=== PATIENT | male | born 1930 | race Caucasian/White ===

== ENCOUNTER 2017-09-25 22:30 | Observation (INO) | payer OTHER ==
[~2017-09-25] VITALS: Ht 175.3 cm; Wt 103.9 kg
[~2017-09-25 22:30] MED LIST: ASPI81 CHEW; ATEN-100 PO; FURO1TAB93 PO; LOVA10TA; VASO10TA8 PO
[2017-09-25 22:36] VITALS: BP 211/103; PULSE 119; RESP 20; TEMP 101.4; O2SAT 96
[2017-09-25 22:45] VITALS: BP 171/87; PULSE 118; RESP 20; TEMP 102.5; O2SAT 98
[2017-09-25] MEDS ORDERED: cefTRIAXone INJ 1,000 MG in SODIUM CHLORIDE 0.9% INJ 100 ML IV ONE (23:00)
[2017-09-25] MEDS ORDERED: AZITHROMYCIN INJ 500 MG in SODIUM CHLOR 0.9% 250 ML INJ 250 ML IV ONE (23:00)
[2017-09-25] MEDS ORDERED: RESP: ALBUTEROL 2.5 MG/IPRATROPIUM 0.5 MG NEB (SCH) NEB ONE (23:00)
[2017-09-25 23:17] LABS: AUTOMATED NEUTROPHIL # 8.6 TH/MM3 (1.8-7.7); BASOPHIL # 0.2 TH/MM3 (0-0.2); BASOPHIL % 1.7 % (0.0-2.0); EOSINOPHIL # 0.1 TH/MM3 (0-0.4); EOSINOPHIL % 0.5 % (0.0-4.0); HEMATOCRIT 43.5 % (39.0-51.0); HEMO FLAGS DIFF FINAL; LYMPHOCYTE # 0.5 TH/MM3 (1.0-4.8); MEAN CELL VOLUME 97.9 FL (80.0-100.0); MEAN CORPUSCULAR HEMOGLOBIN 32.9 PG (27.0-34.0); MEAN CORPUSCULAR HGB CONC 33.6 % (32.0-36.0); MONO % 6.8 % (0.0-8.0); PLATELET COUNT 206 TH/MM3 (150-450); RED BLOOD COUNT 4.44 MIL/MM3 (4.50-5.90); RED CELL DISTRIBUTION WIDTH 13.1 % (11.6-17.2); WHITE BLOOD COUNT 10.1 TH/MM3 (4.0-11.0)
[2017-09-25 23:29] LABS: CHLORIDE 101 MEQ/L (98-107); SODIUM (NA) 133 MEQ/L (136-145)
[2017-09-25 23:33] LABS: ANION GAP 10 MEQ/L (5-15); BICARBONATE 21.8 MEQ/L (21.0-32.0); BLOOD UREA NITROGEN 30 MG/DL (7-18)
[2017-09-25 23:36] LABS: ALT (GPT) 54 U/L (12-78); AST (GOT) 28 U/L (15-37); GLOMERULAR FILTRATION RATE 58 ML/MIN (>89)
[2017-09-25 23:37] LABS: TOTAL BILIRUBIN ADULT 0.5 MG/DL (0.2-1.0)
[2017-09-25 23:39] LABS: ALKALINE PHOSPHATASE 63 U/L (45-117)
--- NOTE | 2017-09-25 23:43 | PD ---
Physical Exam Date Seen by Provider: Sep 25, 2017 Narrative This report is in ERROR Please disregard this report and all prior copies ! This report is in ERROR Please disregard this report and all prior copies ! This report is in ERROR Please disregard this report and all prior copies ! Data Data Last Documented VS Vital Signs Date Time Temp Pulse Resp B/P (MAP) Pulse Ox O2 Delivery O2 Flow Rate FiO2 09/25/17 22:45 102.5 118 20 171/87 (115) 98 Room Air 4.00 Orders Orders Electrocardiogram (09/25/17 22:48) Complete Blood Count With Diff (09/25/17 22:48) Comprehensive Metabolic Panel (09/25/17 22:48) Troponin I (09/25/17 22:48) B-Type Natriuretic Peptide (09/25/17 22:48) Lipase (09/25/17 22:48) Chest, Pa & Lat (09/25/17 22:48) Ceftriaxone Inj (Rocephin Inj) (09/25/17 23:00) Azithromycin Inj (Zithromax Inj) (09/25/17 23:00) Blood Culture (09/25/17 22:50) Albuterol-Ipratropium Neb (Duoneb Neb) (09/25/17 23:00) Lactic Acid (09/25/17 23:05) Labs Laboratory Tests Test 09/25/17 23:05 White Blood Count 10.1 TH/MM3 Red Blood Count 4.44 MIL/MM3 Hemoglobin 14.6 GM/DL Hematocrit 43.5 % Mean Corpuscular Volume 97.9 FL Mean Corpuscular Hemoglobin 32.9 PG Mean Corpuscular Hemoglobin Concent 33.6 % Red Cell Distribution Width 13.1 % Platelet Count 206 TH/MM3 Mean Platelet Volume 7.0 FL Neutrophils (%) (Auto) 86.0 % Lymphocytes (%) (Auto) 5.0 % Monocytes (%) (Auto) 6.8 % Eosinophils (%) (Auto) 0.5 % Basophils (%) (Auto) 1.7 % Neutrophils # (Auto) 8.6 TH/MM3 Lymphocytes # (Auto) 0.5 TH/MM3 Monocytes # (Auto) 0.7 TH/MM3 Eosinophils # (Auto) 0.1 TH/MM3 Basophils # (Auto) 0.2 TH/MM3 CBC Comment DIFF FINAL Differential Comment Blood Urea Nitrogen 30 MG/DL Creatinine 1.20 MG/DL Random Glucose 194 MG/DL Total Protein 6.7 GM/DL Albumin 3.1 GM/DL Calcium Level 7.7 MG/DL Alkaline Phosphatase 63 U/L Aspartate Amino Transf (AST/SGOT) 28 U/L Alanine Aminotransferase (ALT/SGPT) 54 U/L Total Bilirubin 0.5 MG/DL Sodium Level 133 MEQ/L Potassium Level 4.0 MEQ/L Chloride Level 101 MEQ/L Carbon Dioxide Level 21.8 MEQ/L Anion Gap 10 MEQ/L Estimat Glomerular Filtration Rate 58 ML/MIN Lactic Acid Level 1.7 mmol/L Troponin I 0.03 NG/ML Lipase 199 U/L MDM Supervised Visit with ARIAN: Yes (error cancel chart) Moe Ramírez MD Sep 25, 2017 23:43
--- NOTE | 2017-09-25 23:44 | RADRPT ---
EXAM DATE/TIME: 09/25/2017 23:12 [place] COMPARISON: No previous studies available for comparison. INDICATIONS : Shortness of breath and tightness in chest. MEDICAL HISTORY : None. SURGICAL HISTORY : None. ENCOUNTER: Initial ACUITY: 1 day PAIN SCORE: 4/10 LOCATION: Bilateral chest FINDINGS: PA and lateral views of the chest demonstrate the lungs to be symmetrically aerated without evidence of mass, infiltrate or effusion. The cardiomediastinal contours are unremarkable. Marked osteoarthri tis of both shoulders. CONCLUSION: Normal examination except for faint 8mm nodular density left upper lobe. Followup 2 view chest as an outpatient is recommended. Nnamdi Leon MD on September 25, 2017 at 23:42 Board Certified Radiologist. This report was verified electronically.
[2017-09-25 23:46] VITALS: BP 121/59; PULSE 110; RESP 18; O2SAT 97
[2017-09-26] VITALS (10 sets, daily range): BP systolic 121–142; BP diastolic 63–80; PULSE 66–101; RESP 18–20; TEMP 97.4–100.3; O2SAT 93–98
--- NOTE | 2017-09-26 00:30 | PD ---
HPI Chief Complaint: Cold / Flu Symptoms Time Seen by Provider: 22:40 Travel History International Travel<30 days: No Contact w/Intl Traveler<30days: No Traveled to known affect area: No History of Present Illness HPI Patient is an 86-year-old male coming from home saying that he is feeling short of breath. He says not pneumonia but I feel like I can't quite brief. He says it's my edema. However he denies having congestive heart failure. Patient is febrile at 102. The satting to 90 on room air. And tachycardic as well as hypertensive on originally arriving. He did not take anything to feel better he says he just feels like he's got a bad cold. PFSH Past Medical History Autoimmune Disease: No Anxiety: No Depression: No Heart Rhythm Problems: No Cancer: No Cardiac Catheterization: No Cardiovascular Problems: No High Cholesterol: Yes Congestive Heart Failure: No Diabetes: No Endocrine: No Genitourinary: No Hypertension: Yes Immune Disorder: No Musculoskeletal: No Neurologic: Yes Psychiatric: No Reproductive: No Respiratory: No Myocardial Infarction: No Pneumonia: Yes (CHILDHOOD) Past Surgical History Coronary Artery Bypass Graft: No Oral Surgery: Yes (TONSILLECTOMY) Tonsillectomy: Yes Other Surgery: Yes Social History Alcohol Use: Yes (3 TIMES PER WEEK) Tobacco Use: No Substance Use: No Allergies-Medications (Allergen,Severity, Reaction): Coded Allergies: No Known Allergies (Verified , 07/01/14) Reported Meds & Prescriptions Reported Meds & Active Scripts Active Reported Aspirin 81 Mg Tab 81 Mg CHEW DAILY Atenolol 25 Mg Tab 25 Mg PO DAILY Lasix (Furosemide) 40 Mg Tab 40 Mg PO DAILY Mevacor (Lovastatin) 10 Mg Tab 0 Mg UNKNOWN DOSE Vasotec (Enalapril Maleate) 10 Mg Tab 10 Mg PO DAILY Review of Systems Except as stated in HPI: all other systems reviewed are Neg General / Constitutional: Positive: Fever, Chills Respiratory: Positive: Cough, Shortness of Breath Physical Exam Narrative GENERAL: Patient appears short of breath diaphoretic on 3 L desat into 92 SKIN: Warm and dry. HEAD: Atraumatic. Normocephalic. EYES: Pupils equal and round. No scleral icterus. No injection or drainage. ENT: No nasal bleeding or discharge. Mucous membranes pink and moist. NECK: Trachea midline. No JVD. CARDIOVASCULAR: Regular rate and rhythm. RESPIRATORY patient has coarse breath sounds crackles in the right lower lobe and minimal X Ramsey wheeze in the left upper lobe respiratory rate is increased oxygen saturation on 2 L is only 91-92. GASTROINTESTINAL: Abdomen soft, non-tender, nondistended. Hepatic and splenic margins not palpable. MUSCULOSKELETAL: Extremities without clubbing, cyanosis, or edema. No obvious deformities. NEUROLOGICAL: Awake and alert. No obvious cranial nerve deficits. Motor grossly within normal limits. Five out of 5 muscle strength in the arms and legs. Normal speech. PSYCHIATRIC: Appropriate mood and affect; insight and judgment normal. Data Data Last Documented VS Vital Signs Date Time Temp Pulse Resp B/P (MAP) Pulse Ox O2 Delivery O2 Flow Rate FiO2 09/25/17 23:46 110 18 121/59 (79) 97 Nasal Cannula 4.00 09/25/17 22:45 102.5 Orders Orders Electrocardiogram (09/25/17 22:48) Complete Blood Count With Diff (09/25/17 22:48) Comprehensive Metabolic Panel (09/25/17 22:48) Troponin I (09/25/17 22:48) B-Type Natriuretic Peptide (09/25/17 22:48) Lipase (09/25/17 22:48) Chest, Pa & Lat (09/25/17 22:48) Ceftriaxone Inj (Rocephin Inj) (09/25/17 23:00) Azithromycin Inj (Zithromax Inj) (09/25/17 23:00) Blood Culture (09/25/17 22:50) Albuterol-Ipratropium Neb (Duoneb Neb) (09/25/17 23:00) Lactic Acid (09/25/17 23:05) Labs Laboratory Tests Test 09/25/17 23:05 White Blood Count 10.1 TH/MM3 Red Blood Count 4.44 MIL/MM3 Hemoglobin 14.6 GM/DL Hematocrit 43.5 % Mean Corpuscular Volume 97.9 FL Mean Corpuscular Hemoglobin 32.9 PG Mean Corpuscular Hemoglobin Concent 33.6 % Red Cell Distribution Width 13.1 % Platelet Count 206 TH/MM3 Mean Platelet Volume 7.0 FL Neutrophils (%) (Auto) 86.0 % Lymphocytes (%) (Auto) 5.0 % Monocytes (%) (Auto) 6.8 % Eosinophils (%) (Auto) 0.5 % Basophils (%) (Auto) 1.7 % Neutrophils # (Auto) 8.6 TH/MM3 Lymphocytes # (Auto) 0.5 TH/MM3 Monocytes # (Auto) 0.7 TH/MM3 Eosinophils # (Auto) 0.1 TH/MM3 Basophils # (Auto) 0.2 TH/MM3 CBC Comment DIFF FINAL Differential Comment Blood Urea Nitrogen 30 MG/DL Creatinine 1.20 MG/DL Random Glucose 194 MG/DL Total Protein 6.7 GM/DL Albumin 3.1 GM/DL Calcium Level 7.7 MG/DL Alkaline Phosphatase 63 U/L Aspartate Amino Transf (AST/SGOT) 28 U/L Alanine Aminotransferase (ALT/SGPT) 54 U/L Total Bilirubin 0.5 MG/DL Sodium Level 133 MEQ/L Potassium Level 4.0 MEQ/L Chloride Level 101 MEQ/L Carbon Dioxide Level 21.8 MEQ/L Anion Gap 10 MEQ/L Estimat Glomerular Filtration Rate 58 ML/MIN Lactic Acid Level 1.7 mmol/L Troponin I 0.03 NG/ML B-Type Natriuretic Peptide 63 PG/ML Lipase 199 U/L [facility] Medical Decision Making Medical Screen Exam Complete: Yes Emergency Medical Condition: Yes Differential Diagnosis Viral bronchitis versus bacterial pneumonia versus CHF versus COPD Narrative Course Physical exam I hear crackles and rales rhonchi in the right lower lobe and minimal expiratory wheeze in the left upper lobe he is febrile at 100 and 2D satting I feel he has a right lower lobe pneumonia based on clinical as well as laboratory and x-ray I will give azithromycin and ceftriaxone IV. He is not nosocomial he is a community-acquired pneumonia bronchitis. Admit Diagnosis Primary Impression: Pneumonia Additional Impressions: Bronchitis Contusion of face Strain of right hip Moe Ramírez MD Sep 26, 2017 00:30
[2017-09-26] MEDS ORDERED: RESP: ALBUTEROL 2.5 MG/IPRATROPIUM 0.5 MG NEB (PRN) NEB (01:00)
[2017-09-26] MEDS ORDERED: SODIUM CHLORIDE 0.9% FLUSH 10 ML FLUSH IV FLUSH PRN (01:00)
[2017-09-26] MEDS ORDERED: ACETAMINOPHEN 325 MG TAB PO PRN (01:00)
[2017-09-26] MEDS: ENOXAPARIN SODIUM 40 MG/0.4 ML SYRINGE SQ SCH (01:27)
[2017-09-26] MEDS: RESP: ALBUTEROL 2.5 MG/IPRATROPIUM 0.5 MG NEB (SCH) NEB ×4 (04:02→21:10)
[2017-09-26] MEDS: SODIUM CHLORIDE 0.9% FLUSH 10 ML FLUSH IV FLUSH SCH ×2 (09:33→21:00)
--- NOTE | 2017-09-26 14:43 | HHI.HP ---
[facility] Paras Rodriguez MD Admission Diagnosis PNA bronchitis Diagnoses: (1) Bronchitis Chief Complaint: Cough, subjective fevers, chills Travel History International Travel<30 Days: No Contact w/Intl Traveler <30 Da: No Traveled to Known Affected Are: No Sepsis Criteria SIRS Criteria (2 or more): Temp > 100.9 or < 96.8, Heart rate over 90 History of Present Illness Written by Korina Castellon, acting as scribe for Dr. Ramirez on 09/26/17 at 14:30. Mr. Vences is a very pleasant 86-year-old male patient with a known medical history of hyperlipidemia and HTN who presented to the ED with subjective fevers , chills and productive cough. Patient states that he noticed the symptoms start on Sunday. He has continued to have complaints of coughing and chest tightness. Denies any hemoptysis or sore throat. Denies any recent sick contacts. Denies any recent chest pain, headache, ab pain, n/v/d or dysuria. Has been coughing up phlegm. Was admitted with a 102 temperature which is now resolved. Patient currently states he is feeling much better and symptoms improving. CXR reviewed showing no acute abnormality. No leukocytosis. BNP 63. Lactic acid 1.7. Review of Systems Constitutional: COMPLAINS OF: Fever, Chills Eyes: DENIES: Eye pain Ears, nose, mouth, throat: DENIES: Throat pain Respiratory: COMPLAINS OF: Cough, Sputum production, Shortness of breath Cardiovascular: DENIES: Chest pain, Palpitations Gastrointestinal: DENIES: Abdominal pain, Constipation, Diarrhea, Nausea, Vomiting Musculoskeletal: DENIES: Joint pain Psychiatric: DENIES: Anxiety Except as stated in HPI: all other systems reviewed are Neg Past Family Social History Past Medical History Hyperlipidemia Hypertension Past Surgical History Tonsillectomy Reported Medications Active Reported Aspirin 81 Mg Tab 81 Mg CHEW DAILY Atenolol 25 Mg Tab 25 Mg PO DAILY Lasix (Furosemide) 40 Mg Tab 40 Mg PO DAILY Mevacor (Lovastatin) 10 Mg Tab 0 Mg UNKNOWN DOSE Vasotec (Enalapril Maleate) 10 Mg Tab 10 Mg PO DAILY Allergies: Coded Allergies: No Known Allergies (Verified Allergy, Unknown, 09/26/17) Active Ordered Medications Current Medications Medications (Trade) Dose Ordered Sig/Soo Route Start Time Stop Time Status Last Admin (NS Flush) 2 ml UNSCH PRN IV FLUSH 09/26/17 01:00 (NS Flush) 2 ml BID IV FLUSH 09/26/17 09:00 09/26/17 09:33 (Tylenol) 650 mg Q4H PRN PO 09/26/17 01:00 (Lovenox Inj) 40 mg DAILY@0000 SQ 09/26/17 01:00 09/26/17 01:27 Ceftriaxone Sodium 1000 mg/ Sodium Chloride 100 ml @ 200 mls/hr Q24H IV 09/27/17 00:00 Azithromycin 500 mg/Sodium Chloride 250 ml @ 250 mls/hr Q24H IV 09/27/17 01:00 (Duoneb Neb) 1 ampule Q6HR NEB NEB 09/26/17 04:00 09/26/17 09:36 (Duoneb Neb) 1 ampule Q4HR NEB PRN NEB 09/26/17 01:00 Family History Father has a history of cardiovascular disease. Mother of old age. Social History Denies any current tobacco use, admits to a tobacco use history of 35 years. Admits to drinking socially. Denies any illicit drug use. Physical Exam Vital Signs Vital Signs Date Time Temp Pulse Resp B/P (MAP) Pulse Ox O2 Delivery O2 Flow Rate FiO2 09/26/17 09:49 93 21 09/26/17 09:39 97 Nasal Cannula 4.00 09/26/17 08:00 97.4 86 18 129/67 (87) 96 09/26/17 04:02 96 Nasal Cannula 4.00 09/26/17 02:45 99.5 101 20 121/70 (87) 98 09/26/17 02:23 98 Nasal Cannula 4.00 09/26/17 02:06 100.3 09/25/17 23:46 110 18 121/59 (79) 97 Nasal Cannula 4.00 09/25/17 22:45 102.5 118 20 171/87 (115) 98 Room Air 4.00 09/25/17 22:42 20 96 Nasal Cannula 4.00 09/25/17 22:36 101.4 119 20 211/103 (139) 96 Physical Exam GENERAL: This is a well-nourished, well-developed male patient, in no apparent distress. SKIN: Warm and dry. HEAD: Pupils equal round and reactive. Extraocular motions intact. No scleral icterus. No injection or drainage. Nose without bleeding. Throat without erythema, tonsillar hypertrophy or exudate. Uvula midline. Airway patent. NECK: Trachea midline. No JVD or lymphadenopathy. Supple, nontender, no meningeal signs. CARDIOVASCULAR: Regular rate and rhythm without murmurs RESPIRATORY: Clear to auscultation. Breath sounds equal bilaterally. No wheezes , rales, or crackles. GASTROINTESTINAL: Abdomen soft, non-tender, nondistended. Umbilical hernia present and reducible. MUSCULOSKELETAL: Extremities without edema. no calf tenderness NEUROLOGICAL: Awake and alert. Cranial nerves II through XII intact. Motor and sensory grossly within normal limits. Five out of 5 muscle strength in all muscle groups. Normal speech. Laboratory Laboratory Tests Test 09/25/17 23:05 White Blood Count 10.1 Red Blood Count 4.44 Hemoglobin 14.6 Hematocrit 43.5 Mean Corpuscular Volume 97.9 Mean Corpuscular Hemoglobin 32.9 Mean Corpuscular Hemoglobin Concent 33.6 Red Cell Distribution Width 13.1 Platelet Count 206 Mean Platelet Volume 7.0 Neutrophils (%) (Auto) 86.0 Lymphocytes (%) (Auto) 5.0 Monocytes (%) (Auto) 6.8 Eosinophils (%) (Auto) 0.5 Basophils (%) (Auto) 1.7 Neutrophils # (Auto) 8.6 Lymphocytes # (Auto) 0.5 Monocytes # (Auto) 0.7 Eosinophils # (Auto) 0.1 Basophils # (Auto) 0.2 CBC Comment DIFF FINAL Differential Comment Blood Urea Nitrogen 30 Creatinine 1.20 Random Glucose 194 Total Protein 6.7 Albumin 3.1 Calcium Level 7.7 Alkaline Phosphatase 63 Aspartate Amino Transf (AST/SGOT) 28 Alanine Aminotransferase (ALT/SGPT) 54 Total Bilirubin 0.5 Sodium Level 133 Potassium Level 4.0 Chloride Level 101 Carbon Dioxide Level 21.8 Anion Gap 10 Estimat Glomerular Filtration Rate 58 Lactic Acid Level 1.7 Troponin I 0.03 B-Type Natriuretic Peptide 63 Lipase 199 Date/Time Source Procedure Growth Status 09/25/17 23:08 Blood Peripheral Aerobic Blood Culture - Preliminary NO GROWTH IN 1 DAY Resulted 09/25/17 23:08 Blood Peripheral Anaerobic Blood Culture - Preliminary NO GROWTH IN 1 DAY Resulted 09/26/17 01:06 Nasal Aspirate Influenza Types A,B Antigen (MKUESH) - Final NEGATIVE FOR FLU A AND B ANTIGEN.... Complete Result Diagram: 09/25/17 2305 09/25/17 2305 Imaging Last Impressions Chest X-Ray 09/25/178 Signed Impressions: Service Date/Time: Monday, September 25, 2017 23:12 - CONCLUSION: Normal examination except for faint 8mm nodular density left upper lobe. Followup 2 view chest as an outpatient is recommended. Nnamdi Leon MD Septic Shock Reassessment Heart: Regular rate and rhythm Lungs: Clear Skin: Warm Peripheral Pulses: Bounding Right Radial Bounding Left Radial Bounding Right Dorsalis Pedis Bounding Left Dorsalis Pedis Capillary Refill: Brisk, <2 seconds Caprini VTE Risk Assessment Caprini VTE Risk Assessment: Mod/High Risk (score >= 2) Caprini Risk Assessment Model Point Value = 1 Point Value = 2 Point Value = 3 Point Value = 5 Age 41-60 Minor surgery BMI > 25 kg/m2 Swollen legs Varicose veins or History of unexplained or recurrent spontaneous Oral contraceptives or hormone replacement Sepsis (< 1 month) Serious lung disease, including pneumonia (< 1 month) Abnormal pulmonary function Acute myocardial infarction Congestive heart failure (< 1 month) History of inflammatory bowel disease Medical patient at bed rest Age 61-74 Arthroscopic surgery Major open surgery (> 45 min) Laparoscopic surgery (> 45 min) Malignancy Confined to bed (> 72 hours) Immobilizing plaster cast Central venous access Age >= 75 History of VTE Family history of VTE Factor V Leiden Prothrombin [id number] Lupus anticoagulant Anticardiolipin antibodies Elevated serum homocysteine Heparin-induced thrombocytopenia Other congenital or acquired thrombophilia Stroke (< 1 month) Elective arthroplasty Hip, pelvis, or leg fracture Acute spinal cord injury (< 1 month) Prophylaxis Regimen Total Risk Factor Score Risk Level Prophylaxis Regimen 0-1 Low Early ambulation 2 Moderate Order ONE of the following: *Sequential Compression Device (SCD) *Heparin 5000 units SQ BID 3-4 Higher Order ONE of the following medications: *Heparin 5000 units SQ TID *Enoxaparin/Lovenox 40 mg SQ daily (WT < 150 kg, CrCl > 30 mL/min) *Enoxaparin/Lovenox 30 mg SQ daily (WT < 150 kg, CrCl > 10-29 mL/min) *Enoxaparin/Lovenox 30 mg SQ BID (WT < 150 kg, CrCl > 30 mL/min) AND/OR *Sequential Compression Device (SCD) 5 or more Highest Order ONE of the following medications: *Heparin 5000 units SQ TID (Preferred with Epidurals) *Enoxaparin/Lovenox 40 mg SQ daily (WT < 150 kg, CrCl > 30 mL/min) *Enoxaparin/Lovenox 30 mg SQ daily (WT < 150 kg, CrCl > 10-29 mL/min) *Enoxaparin/Lovenox 30 mg SQ BID (WT < 150 kg, CrCl > 30 mL/min) AND *Sequential Compression Device (SCD) Assessment and Plan Assessment and Plan Mr. Vences is a very pleasant 86-year-old male patient with a known medical history of hyperlipidemia and HTN who presented to the ED with subjective fevers , chills and productive cough. Patient states that he noticed the symptoms start on Sunday. CXR reviewed showing no acute abnormality. No leukocytosis. BNP 63. Lactic acid 1.7. Bronchitis questionable PNA per ED exam meets SIRs criteria (febrile 102, tachycardia) CXR reviewed showing no acute abnormality. An 8 mm nodular density of the left upper lobe is seen and recommended outpatient follow up. Pt agreeable w plan. Lactic acid 1.7. BNP 63. Influenza negative. BC NGTD. Continue to follow. Was given Azithromycin and Rocephin IV in ED and scheduled IV. Continue for now. Duonebs available scheduled and PRN. No leukocytosis. No fever, monitor for fevers. Acetaminophen available PRN. Walk test ordered. follow up Currently on RA and tolerating well. Denies any shortness of breath. Hyperlipidemia: Continue home Lovastatin. Hypertension, chronic: Continue home Atenolol and Enalapril. Monitor BP trends. DVT prophylaxis: SCDs. Lovenox. Possible DC tomorrow if symptoms continue to improve and BC negative. Pt and daughter in law agreeable with plan. This note was transcribed by matthew Castellon. I, Dr. Cristina Ramirez personally performed the history, physical exam, and medical decision making; and confirmed the accuracy of the information in the transcribed note. Authenticated by Dr. Cristina Ramirez on 09/26/17 at 14:30. Code Status Full code Discussed Condition With Patient and [id number]. Korina Castellon Sep 26, 2017 14:43 Cristina Ramirez MD Sep 26, 2017 16:42
[2017-09-26] MEDS ORDERED: ALLO100T PO (15:00)
--- NOTE | 2017-09-26 18:53 | EKG ---
Date Performed: 09/25/2017 Time Performed: 23:00:36 PTAGE: 86 years EKG: SINUS TACHYCARDIA WITH FIRST DEGREE AV BLOCK ABNORMAL ECG PREVIOUS TRACING : 07/01/2014 08.33 Compared to prior tracing no significant change DOCTOR: Herbert Ron Interpretating Date/Time 09/26/2017 18:52:31
[2017-09-27] VITALS: BP 142/72; PULSE 71; RESP 20; TEMP 98.5; O2SAT 95
[2017-09-27] MEDS ORDERED: cefTRIAXone INJ 1,000 MG in SODIUM CHLORIDE 0.9% INJ 100 ML IV SCH ×2
[2017-09-27] MEDS: ENOXAPARIN SODIUM 40 MG/0.4 ML SYRINGE SQ SCH (00:12)
[2017-09-27] MEDS ORDERED: AZITHROMYCIN INJ 500 MG in SODIUM CHLOR 0.9% 250 ML INJ 250 ML IV SCH (01:00)
[2017-09-27] MEDS: RESP: ALBUTEROL 2.5 MG/IPRATROPIUM 0.5 MG NEB (SCH) NEB ×2 (03:04→11:07)
[2017-09-27 04:00] VITALS: BP 139/83; PULSE 84; RESP 20; TEMP 96; O2SAT 95
[2017-09-27 06:45] LABS: AUTOMATED NEUTROPHIL # 6.5 TH/MM3 (1.8-7.7); BASOPHIL % 0.1 % (0.0-2.0); EOSINOPHIL # 0.1 TH/MM3 (0-0.4); HEMATOCRIT 41.5 % (39.0-51.0); HEMO FLAGS DIFF FINAL; LYMPHOCYTE # 1.2 TH/MM3 (1.0-4.8); MEAN CELL VOLUME 98.6 FL (80.0-100.0); MEAN CORPUSCULAR HEMOGLOBIN 32.9 PG (27.0-34.0); MEAN CORPUSCULAR HGB CONC 33.4 % (32.0-36.0); MONO % 7.4 % (0.0-8.0); NEUT % 77.5 % (16.0-70.0); PLATELET COUNT 176 TH/MM3 (150-450); RED BLOOD COUNT 4.21 MIL/MM3 (4.50-5.90); RED CELL DISTRIBUTION WIDTH 12.8 % (11.6-17.2); WHITE BLOOD COUNT 8.4 TH/MM3 (4.0-11.0)
[2017-09-27 06:59] LABS: POTASSIUM 3.8 MEQ/L (3.5-5.1)
[2017-09-27 07:03] LABS: BICARBONATE 25.2 MEQ/L (21.0-32.0)
[2017-09-27 08:00] VITALS: BP 166/87; PULSE 92; PULSE 93; RESP 20; TEMP 98.2; O2SAT 94
[2017-09-27] MEDS: SODIUM CHLORIDE 0.9% FLUSH 10 ML FLUSH IV FLUSH SCH (09:32)
[2017-09-27 11:08] VITALS: O2SAT 96
[2017-09-27] MEDS ORDERED: AZIT250T3 PO (11:39)
[2017-09-27] MEDS ORDERED: VENTAER INH (11:39)
--- NOTE | 2017-09-27 11:40 | HHI.DCPOC ---
Discharge Care Plan Diagnosis: (1) Bronchitis (2) Lung nodule Goals to Promote Your Health * To prevent worsening of your condition and complications * To maintain your health at the optimal level Directions to Meet Your Goals Take your medications as prescribed Follow your dietary instruction Follow activity as directed Keep your appointments as scheduled Take your immunizations and boosters as scheduled If your symptoms worsen call your PCP, if no PCP go to Urgent Care Center or Emergency Room Smoking is Dangerous to Your Health. Avoid second hand smoke Call the 24-hour hour crisis hotline for domestic abuse at Flavio Saeed MD Sep 27, 2017 11:40
--- NOTE | 2017-09-27 16:34 | HHI.PR ---
Subjective Remarks Patient seen earlier this morning around 9 AM. He reports feeling much better. Doing well on room air. Cough is improved. Objective Vitals Vital Signs Date Time Temp Pulse Resp B/P (MAP) Pulse Ox O2 Delivery O2 Flow Rate FiO2 09/27/17 11:08 96 21 09/27/17 08:00 98.2 92 20 166/87 (113) 94 09/27/17 08:00 93 09/27/17 04:00 96.0 84 20 139/83 (101) 95 09/27/17 00:00 98.5 71 20 142/72 (95) 95 09/26/17 21:10 97 21 09/26/17 20:00 97.6 66 20 134/80 (98) 93 09/26/17 20:00 68 09/26/17 20:00 Room Air I/O 09/26/17 09/26/17 09/26/17 09/27/17 09/27/17 09/27/17 07:00 15:00 23:00 07:00 15:00 23:00 Intake Total 350 ml 1080 ml 830 ml Output Total 350 ml Balance 350 ml 1080 ml 480 ml Intake Oral 1080 ml 480 ml IV Total 350 ml 350 ml Output Urine Total 350 ml # Voids 4 # Bowel Movements 0 0 Result Diagram: 09/27/1760409/27/17604 Imaging Last Impressions Chest X-Ray 09/25/172247 Signed Impressions: Service Date/Time: Monday, September 25, 2017 23:12 - CONCLUSION: Normal examination except for faint 8mm nodular density left upper lobe. Followup 2 view chest as an outpatient is recommended. Nnamdi Leon MD Objective Remarks GENERAL: This is a well-nourished, well-developed patient, in no apparent distress. CARDIOVASCULAR: Normal rate and regular rhythm without murmurs, gallops, or rubs. RESPIRATORY: Good respiratory efforts. Breath sounds equal and clear to auscultation bilaterally. GASTROINTESTINAL: Abdomen soft, non-tender, non-distended. Normal active bowel sounds MUSCULOSKELETAL: Extremities without cyanosis, or edema. NEURO: Alert & Oriented x4 to person, place, time, situation. Moves all ext x4 PSYCH: Appropriate mood and affect. A/P Problem List: (1) Bronchitis ICD Code: J40 - Bronchitis, not specified as acute or chronic Status: Acute Assessment and Plan 86-year-old male patient with a known medical history of hyperlipidemia and HTN who presented to the ED with subjective fevers, chills and productive cough. Patient states that he noticed the symptoms start on Sunday. CXR reviewed showing no acute abnormality. No leukocytosis. BNP 63. Lactic acid 1.7. The patient was admitted and treated for presumed bronchitis. Given his age, early community-acquired pneumonia is also a possibility. He quickly improved. He is discharged on azithromycin to complete the course of treatment. He was found to have an 8 mm nodular density on the left upper lobe and outpatient follow-up is recommended. This was discussed with the patient and he agreed with the plan. Hyperlipidemia: Continue home Lovastatin. Hypertension, chronic: Continue home Atenolol and Enalapril. Patient symptoms quickly improved. Okay to discharge home in good condition Activity: Regular as tolerated Diet: Heart healthy Meds: Per med rec Follow-up with: PCP Flavio Saeed MD Sep 27, 2017 16:34
== END 2017-09-27 12:56 | disposition home or self-care (01) ==
LOC: PHED 22:30 → PHEDA 09-26 00:51 → INTOOBSV 09-26 00:51 → PH3A 09-26 02:16
PROVIDERS: ADMIT Family Medicine; ATTEND Family Medicine
DX: J40 Bronchitis, not specified as acute or chronic (principal); J18.9 Pneumonia, unspecified organism; S00.83XA Contusion of other part of head, initial encounter; S76.011A Strain of muscle, fascia and tendon of right hip, initial encounter; I44.0 Atrioventricular block, first degree; R00.0 Tachycardia, unspecified; I10 Essential (primary) hypertension; E78.5 Hyperlipidemia, unspecified; E78.00 Pure hypercholesterolemia, unspecified; Z79.899 Other long term (current) drug therapy; Z79.82 Long term (current) use of aspirin; X58.XXXA Exposure to other specified factors, initial encounter
CPT/HCPCS: 71020; 80048; 80053; 83605; 83690; 83880; 84484; 85025; 87040; 87804; 93005; 94620; 94640; 94664; 96365; 96366; 96372; 97162; 99285; G0378; G8987; G8988; J0456; J0696; J1650; J7050

== ENCOUNTER 2018-05-08 05:21 | Inpatient (IN) | payer OTHER, MEDICARE ==
[~2018-05-08] VITALS: Ht 172.7 cm; Wt 104.6 kg
[~2018-05-08 05:21] MED LIST changes: +ALLO100T PO; -ASPI81 CHEW; +ASPI81TA23 PO; -ATEN-100 PO; +ATEN25TA PO; +ENAL10TA PO; -FURO1TAB93 PO; -LOVA10TA; +LOVA20TA PO; +MILK300C PO; +MULT-65 PO; -VASO10TA8 PO; +VENTAER INH
[2018-05-08] MEDS ORDERED: ceFAZolin 2 GM PREMIX 50 ML IV SCH (06:00)
[2018-05-08] MEDS ORDERED: SODIUM CHLORID 0.9% 500 ML IV PRN (06:00)
[2018-05-08] MEDS ORDERED: VANCOMYCIN 1 GM/200 ML INJ 200 ML IV SCH (06:00)
[2018-05-08] MEDS ORDERED: POVIDONE IODINE 5% (ANTISEPSIS KIT) 4 APPLICATIONS EACH NARE PRN (06:00)
[2018-05-08] MEDS ORDERED: METOPROLOL TARTRATE 25 MG TAB PO PRN (06:00)
[2018-05-08] MEDS ORDERED: EXPAREL PERI-ARTICULAR INJECTION (TOTAL VOL. 60 ML) P-ARTICULR SCH ×2 (06:00)
[2018-05-08] MEDS ORDERED: TRANEXAMIC ACID INJ 1,030 MG in SODIUM CHLORIDE 0.9% INJ 100 ML IV SCH (06:00)
[2018-05-08] MEDS ORDERED: DEXAMETHASONE SOD PHOS 20 MG/5 ML VIAL IV PRN (06:00)
[2018-05-08] MEDS ORDERED: CHLORHEXIDINE GLUCONATE 2 % 1 PACK (2 CLOTHS) TOPICAL PRN (06:00)
[2018-05-08] MEDS ORDERED: CHLORHEXIDINE GLUCONATE 4% SOLN 120 ML BTL TOPICAL SCH (06:00)
[2018-05-08] MEDS ORDERED: LACTATED RINGER'S 1000 ML IV PRN (06:00)
[2018-05-08] MEDS ORDERED: POVIDONE IODINE 7.5% SCRUB 118 ML BOTTLE TOPICAL SCH (06:00)
[2018-05-08] MEDS ORDERED: GENTAMICIN SULFATE 80 MG/2 ML VIAL ONE (06:04)
[2018-05-08] MEDS ORDERED: ACETAMINOPHEN 1000 MG/100 ML 100 ML IV ONE (06:20)
[2018-05-08] MEDS ORDERED: FAMOTIDINE 20 MG/2 ML VIAL ONE (06:21)
[2018-05-08] MEDS ORDERED: HYDROmorphone HCL PF 2 MG/ML VIAL ONE (06:21)
[2018-05-08] MEDS ORDERED: MIDAZOLAM HCL 2 MG/2 ML VIAL ONE (06:21)
--- NOTE | 2018-05-08 06:56 | HHI.DCPOC ---
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 Avoid second hand smoke Call the 24-hour hour crisis hotline for domestic abuse at Pablo Edward May 08, 2018 06:56
--- NOTE | 2018-05-08 07:10 | HHI.FF ---
Face to Face Verification Diagnosis: (1) Status post total hip replacement, left (2) Osteoarthritis of left hip Physical Therapy Gait training, Transfer training, bed to chair Hip: Total hip Left LE Weight Bearing: WB as tolerated Left LE Range of Motion: Active ROM Nursing Nursing: Jed mack Dressing Changes: Do not change dressing Additional Instructions First dressing change in the office I have seen patient Darryl Vences on 05/08/18. My clinical findings support the need for the requested home health care services because: Limited ability to care for self High risk of falls I certify that my clinical findings support that this patient is homebound because: Post-op weakness Unsteady gait/balance Pablo Edward May 08, 2018 07:09
[2018-05-08] MEDS ORDERED: WALKER WHEELS/F1 MIS (07:12)
[2018-05-08] MEDS ORDERED: COMMODE 3-IN-11 MIS (07:12)
[2018-05-08] MEDS ORDERED: ALBUTEROL SULFATE 90 MCG/ACT HFA 8 GM INHALER INH PRN (08:30)
--- NOTE | 2018-05-08 08:34 | PD.OP ---
cc: Vargas Sorenson MD Operative Report Date of Surgery: May 08, 2018 Preoperative Diagnosis: Left hip severe osteoarthritis Postoperative Diagnosis: Same Procedure: Left total hip arthroplasty Anesthesia: General Surgeon: Vargas Sorenson Tank House Operator(s): KAILASH Cunningham The surgical procedure was assisted by my Advanced Registered Nurse Practitioner. My DRILLER'S ASSISTANT presence was necessary throughout this case for the manipulation and positioning of the surgical extremity. My DRILLER'S ASSISTANT was assisting me throughout the duration of this procedure. The skill set of an Advance Registered Nurse Practitioner was medically necessary to complete this procedure. During the surgical case, the surgical scrub technologist was working at the back table and the Advance Registered Nurse Practitioner was directly assisting me. Operation and Findings: IMPLANT DESCRIPTION: 1. [place] Gription Cup, acetabular size 54. 2. [place] AltrX polyethylene, neutral. 4. [place] femoral stem size 9, no collar, high offset. 5. Femoral head/neck metal, 36, +5. ESTIMATED BLOOD LOSS: 200 cc. JUSTIFICATION FOR PROCEDURE: The patient has end-stage osteoarthritis to the hip. There is an attached conservative measures pathway form in the chart that describes the nonoperative measures that were undertaken prior to consideration of surgical management. The patient understood the risks and benefits of surgical management. See my office notes for further details. PROCEDURE: The patient was brought back to the operative theatre. Adequate anesthesia was obtained. The patient received intravenous vancomycin and Ancef. The patient was carefully placed on the operative table. The lower extremity was prepped and draped in the usual sterile fashion. Fluoroscopic images were obtained. We made a standard anterior incision over the hip. We dissected through the TFL fascia, exposing the anterior capsule. Arthrotomy was performed in a T-shaped fashion. The capsule was tagged with a #2 FiberWire. End-stage arthritis was identified. Osteotomy was performed through the femoral neck exposing the acetabulum. Remnants of the labrum were resected and osteophytes were removed. We sequentially reamed the acetabulum. We trialed the hip and placed the final cup into position. This was done under fluoroscopic guidance to obtain the appropriate inclination and anteversion. A manhole cover was placed into the acetabular component. We then placed the final polyethylene into position and confirmed that it was well seated. Capsular attachments on the calcar and the inner aspect of the greater trochanter were resected. On the proximal aspect of the femur we used a rongeur , box osteotome, canal finder, sequential broaches and lateralizing rasp. We calcar planed the proximal femur. Then thoroughly irrigated the wound. We trialed the hip with the appropriate size stem. We placed the final stem in to position and trialed again. The hip was stable while it was externally rotated 70 degrees when the leg was lowered to the floor. The final head was applied, and final fluoroscopic images were obtained. The wound was thoroughly irrigated again. Interarticular injection of liposomal bupivacaine was given. The capsule was closed with #2 FiberWire and #1 Vicryl. The deep fascia was closed with a #2 Stratafix, followed by 2-0 Vicryl in the skin and Dermabond dressing. Postop plan is to weight-bear as tolerated. DVT prophylaxis will be performed with Blair, TERE islas, early mobilization, and Lovenox followed by aspirin. Vargas Sorenson MD May 08, 2018 08:34
[2018-05-08] MEDS ORDERED: ASPI-183 PO (08:36)
[2018-05-08] MEDS ORDERED: NORC5TAB PO (08:36)
[2018-05-08] MEDS ORDERED: ENOX40IN SQ (08:36)
[2018-05-08] MEDS ORDERED: BISACODYL 10 MG SUPP RECTAL PRN (08:45)
[2018-05-08] MEDS ORDERED: NALOXONE HCL 0.4 MG/ML AMP IV PUSH PRN (08:45)
[2018-05-08] MEDS ORDERED: ONDANSETRON HCL 4 MG/2 ML VIAL IVP PRN (08:45)
[2018-05-08] MEDS ORDERED: Post-op Orders (for Pharmacy) XX ONE (08:45)
[2018-05-08] MEDS ORDERED: MORPHINE SULFATE 4 MG/ML INJ IV PUSH PRN (08:45)
[2018-05-08] MEDS ORDERED: MAGNESIUM HYDROXIDE SUSP 30 ML CUP PO PRN (08:45)
[2018-05-08] MEDS ORDERED: diphenhydrAMINE HCL 50 MG/ML VIAL IV PUSH PRN (08:45)
[2018-05-08] MEDS ORDERED: ALUMINUM/MAGNESIUM/SIMETH 30 ML CUP PO PRN (08:45)
[2018-05-08] MEDS ORDERED: ACETAMINOPHEN/HYDROcodone 325 MG/5 MG TAB PO PRN (08:45)
[2018-05-08] MEDS ORDERED: DO NOT ADM ANY ANTICOAGULANT DRUGS PRN (08:52)
--- NOTE | 2018-05-08 08:58 | RADRPT ---
EXAM DATE: 05/08/2018 8:24 AM EDT AGE/SEX: 87 years / Male INDICATIONS: Left total hip arthoplasty. CLINICAL DATA: This is the patient's initial encounter. Patient reports that signs and symptoms have been present for 1 day and indicates a pain score of Nonresponsive. MEDICAL/SURGICAL HISTORY: . Unobtainable. . Unobtainable. COMPARISON: No prior exams available for comparison. FINDINGS: Anatomic alignment in the AP projection. Fracture not appreciated. CONCLUSION: Anatomic alignment following left total hip arthroplasty. Electronically signed by: Barry Charles MD 05/08/2018 8:57 AM EDT
[2018-05-08] MEDS: SODIUM CHLOR 0.9% 1000 ML INJ 1,000 ML IV SCH ×3 (09:00→21:25)
[2018-05-08] MEDS: PRAVASTATIN SOD 20 MG TAB PO SCH (09:00)
[2018-05-08] MEDS: ENALAPRIL MALEATE 10 MG TAB PO SCH (09:00)
[2018-05-08] MEDS: ALLOPURINOL 100 MG TAB PO SCH (09:00)
[2018-05-08] MEDS: ATENOLOL 25 MG TAB PO SCH (09:00)
[2018-05-08] MEDS ORDERED: *morphine SULFATE 4 MG/ML PERIprocedure ONLY ONE (09:23)
--- NOTE | 2018-05-08 09:47 | RADRPT ---
EXAM DATE: 05/08/2018 9:43 AM EDT AGE/SEX: 87 years / Male INDICATIONS: Post op left total hip replacement. CLINICAL DATA: This is the patient's initial encounter. Patient reports that signs and symptoms have been present for 1 day and indicates a pain score of 5/10. MEDICAL/SURGICAL HISTORY: None. None. COMPARISON: No prior exams available for comparison. FINDINGS: Total hip arthroplasty in place. The arthroplasty components are in anatomic alignment and well posit ioned. No significant fracture. Severe degenerative osteoarthritis of the right hip. Soft tissues are unremarkable. CONCLUSION: 1. Right hip arthroplasty in anatomic alignment without acute fracture. Electronically signed by: Pedro Churchill MD 05/08/2018 9:46 AM EDT
[2018-05-08] MEDS ORDERED: SODIUM CHLORIDE 0.9% IV SCH (10:00)
[2018-05-08] MEDS ORDERED: TRANEXAMIC ACID IV SCH (10:00)
--- NOTE | 2018-05-08 11:25 | PD.CONS ---
HPI Service [facility] Consult Requested By Dr. Sorenson Reason for Consult Medical management Primary Care Physician Paras Rodriguez MD Diagnoses: History of Present Illness This is a 87-year-old male complaining of left hip pain affecting his activities of daily living. He has severe arc osteoarthritis underwent hip arthroplasty by Dr. Sorenson who requested consultation to evaluate and manage multiple medical conditions. Anesthesia records reviewed he was hemodynamically stable received 1800 mL crystalloid and EBL of 200 mL. Urine output not measured. States he has hyperlipidemia as controlled on lovastatin, hypertension also controlled on atenolol and enalapri and gout on allopurinol. He was cleared for surgery by his primary care physician. Outside records reviewed CBC unremarkable, BMP remarkable for glucose of 111, coags unremarkable , chest x-ray with no acute cardiopulmonary disease and EKG showing sinus rhythm with first-degree AV block tracing reviewed by me. Review of Systems Except as stated in HPI: all other systems reviewed are Neg Past Family Social History Allergies: Coded Allergies: No Known Allergies (Verified Allergy, Unknown, 05/06/18) Past Medical History As previously mentioned Past Surgical History Tonsillectomy Reported Medications Reported Meds & Active Scripts Active Enoxaparin Inj (Enoxaparin Sodium) 40 Mg/0.4 Ml Syr 40 Mg SQ DAILY 10 Days Start Aspirin after Lovenox is completed. Aspirin 325 Mg Tab 325 Mg PO DAILY Start Aspirin after Lovenox is completed. [place] (Hydrocodone-Acetaminophen) 5 Mg-325 Mg Tab 1-2 Tab PO Q4H PRN Ventolin Hfa 18 GM Inh (Albuterol Sulfate) 90 Mcg/Act Aer 2 Puff INH Q4-6H PRN Reported Milk Thistle 150 Mg Cap 1 Cap PO DAILY Multi-Vitamin Daily (Multiple Vitamin) 1 Tab Tab 1 Tab PO DAILY Atenolol 25 Mg Tab 25 Mg PO DAILY Enalapril (Enalapril Maleate) 10 Mg Tab 10 Mg PO DAILY Aspirin EC (Aspirin) 81 Mg Tabdr 81 Mg PO DAILY Lovastatin 20 Mg Tab 20 Mg PO DAILY Allopurinol 100 Mg Tab 100 Mg PO DAILY Family History No CVA Social History Does not smoke. Drinks 1-2 beers 3 times a week Physical Exam Vital Signs Vital Signs Date Time Temp Pulse Resp B/P (MAP) Pulse Ox O2 Delivery O2 Flow Rate FiO2 05/08/18 10:45 97.7 86 16 138/62 (87) 97 Nasal Cannula 3 05/08/18 10:15 87 12 150/71 (97) 95 05/08/18 10:00 88 12 143/70 (94) 97 05/08/18 09:45 88 22 149/84 (105) 98 05/08/18 09:30 87 17 136/65 (88) 99 Nasal Cannula 2 05/08/18 09:15 86 19 141/63 (89) 98 05/08/18 09:00 86 15 143/62 (89) 96 05/08/18 08:54 97.7 87 22 132/85 (101) 100 Simple Mask 6 05/08/18 06:01 98.5 72 16 174/89 (117) 96 Physical Exam GENERAL: This is an obese, well-developed patient, in no apparent distress. SKIN: No rashes, ecchymoses or lesions. Cool and dry. HEAD: Atraumatic. Normocephalic. No temporal or scalp tenderness. EYES: Pupils equal round and reactive. Extraocular motions intact. No scleral icterus. No injection or drainage. ENT: Nose without bleeding, purulent drainage or septal hematoma. Throat without erythema, tonsillar hypertrophy or exudate. Uvula midline. Airway patent. NECK: Trachea midline. No JVD or lymphadenopathy. Supple, nontender, no meningeal signs. CARDIOVASCULAR: Regular rate and rhythm without murmurs, gallops, or rubs. RESPIRATORY: Clear to auscultation. Breath sounds equal bilaterally. No wheezes , rales, or rhonchi. GASTROINTESTINAL: Abdomen soft, non-tender, nondistended. No guarding. MUSCULOSKELETAL: Extremities without clubbing, cyanosis, or edema. Left hip with dry dressing NEUROLOGICAL: Awake and alert. Cranial nerves II through XII intact. Motor and sensory grossly within normal limits. Five out of 5 muscle strength in all muscle groups. Normal speech. Assessment and Plan Assessment and Plan This is a 87-year-old male complaining of left hip pain affecting his activities of daily living. He has severe osteoarthritis underwent hip arthroplasty by Dr. Sorenson who requested consultation to evaluate and manage multiple medical conditions. Anesthesia records reviewed he was hemodynamically stable received 1800 mL crystalloid and EBL of 200 mL. Urine output not measured. Left hip osteoarthritis status post arthroplasty. Stable continue postoperative care with physical therapy, wound care, DVT prophylaxis with Lovenox, incentive spirometry and pain management with Lortab and morphine sulfate. Monitor for anemia check CBC in the morning Hyperlipidemia controlled on lovastatin will continue Hypertension also controlled on atenolol and enalapril. We will continue home meds and monitor Gout on allopurinol. Mild hyperglycemia. Outpatient follow-up Discussed Condition With Patient Tray Hawk MD May 08, 2018 11:25
[2018-05-08 12:00] VITALS: BP 150/66; PULSE 82; RESP 16; TEMP 98.3; O2SAT 95
[2018-05-08 16:00] VITALS: BP 164/77; PULSE 83; RESP 16; TEMP 97.6; O2SAT 94
[2018-05-08 20:00] VITALS: BP 130/71; PULSE 83; RESP 18; TEMP 98.3; O2SAT 94
[2018-05-08] MEDS ORDERED: ZOLPIDEM TARTRATE 5 MG TAB PO PRN (21:00)
[2018-05-08] MEDS: ACETAMINOPHEN/HYDROcodone 325 MG/5 MG TAB PO PRN (21:24)
[2018-05-09 00:01] VITALS: BP 144/67; PULSE 78; RESP 18; TEMP 97.3; O2SAT 94
[2018-05-09 04:00] VITALS: BP 165/78; PULSE 77; RESP 18; TEMP 97.5; O2SAT 96
[2018-05-09] MEDS: SODIUM CHLOR 0.9% 1000 ML INJ 1,000 ML IV SCH ×2 (04:31→14:31)
[2018-05-09 04:55] LABS: HEMATOCRIT 34.3 % (39.0-51.0); HEMOGLOBIN 11.8 GM/DL (13.0-17.0); MEAN CELL VOLUME 97.7 FL (80.0-100.0); MEAN CORPUSCULAR HEMOGLOBIN 33.7 PG (27.0-34.0); MEAN CORPUSCULAR HGB CONC 34.5 % (32.0-36.0); MEAN PLATELET VOLUME 6.9 FL (7.0-11.0); PLATELET COUNT 197 TH/MM3 (150-450); RED BLOOD COUNT 3.51 MIL/MM3 (4.50-5.90); RED CELL DISTRIBUTION WIDTH 13.7 % (11.6-17.2); WHITE BLOOD COUNT 10.1 TH/MM3 (4.0-11.0)
[2018-05-09] MEDS: ACETAMINOPHEN/HYDROcodone 325 MG/5 MG TAB PO PRN ×4 (05:36→23:13)
[2018-05-09] MEDS ORDERED: DEXAMETHASONE SOD PHOS 20 MG/5 ML VIAL IV ONE (07:45)
[2018-05-09 08:00] VITALS: BP 126/56; PULSE 88; RESP 17; TEMP 98.2; O2SAT 93
[2018-05-09] MEDS: ALLOPURINOL 100 MG TAB PO SCH (09:49)
[2018-05-09] MEDS: ENALAPRIL MALEATE 10 MG TAB PO SCH (09:49)
[2018-05-09] MEDS: ATENOLOL 25 MG TAB PO SCH (09:49)
[2018-05-09] MEDS: PRAVASTATIN SOD 20 MG TAB PO SCH (09:49)
[2018-05-09] MEDS: ENOXAPARIN SODIUM 40 MG/0.4 ML SYRINGE SQ SCH (09:50)
[2018-05-09 12:00] VITALS: BP 105/54; PULSE 74; RESP 17; TEMP 97.8; O2SAT 94
--- NOTE | 2018-05-09 17:56 | PD.ORT.PN ---
Subjective Post Op Day #: 1 Subjective Remarks The patient is resting in bed with mild pain to the left hip. The patient states he no longer has the arthritic pain he had prior to surgery. Objective Vitals Vital Signs Date Time Temp Pulse Resp B/P (MAP) Pulse Ox O2 Delivery O2 Flow Rate FiO2 05/09/18 12:00 97.8 74 17 105/54 (71) 94 05/09/18 08:00 98.2 88 17 126/56 (79) 93 05/09/18 04:00 97.5 77 18 165/78 (107) 96 05/09/18 00:01 97.3 78 18 144/67 (92) 94 05/08/18 20:00 98.3 83 18 130/71 (90) 94 I/O 05/08/18 05/08/18 05/08/18 05/09/18 05/09/18 05/09/18 07:00 15:00 23:00 07:00 15:00 23:00 Intake Total 180 ml 580 ml Output Total 200 ml Balance -20 ml 580 ml Intake Oral 480 ml IV Total 100 ml Other 180 ml Output Estimated Blood Loss 200 ml # Voids 4 Result Diagram: 05/09/18 0427 Procedures Left total hip arthroplasty Objective Remarks The patient's dressing is clean, dry, and intact. EHL/TA/G are intact. 2+ pedal pulse. The patient's calf is soft and nontender. Sensation is intact to light touch distally. Assessment & Plan Ortho Post Op Day #: 1 Problem List: Assessment and Plan POD #1: Left total hip arthroplasty 1. Weightbearing as tolerated on left lower extremity. 2. Lovenox followed by aspirin for DVT prophylaxis. 3. Ice as needed for swelling. 4. Stable per ortho for discharge to home health on Sunday or Sunday. 5. The patient will follow up with Dr. Sorenson and/or KAILASH Walls as previously scheduled. Pablo Edward May 09, 2018 17:56
[2018-05-09 20:00] VITALS: BP 122/65; PULSE 89; RESP 18; TEMP 98.1; O2SAT 96
[2018-05-09] MEDS ORDERED: DOCUSATE SODIUM 100 MG CAP PO SCH (21:00)
[2018-05-09] MEDS ORDERED: MULTIVITAMINS/MINERALS THERAPEUTIC TAB PO SCH (21:00)
[2018-05-10] VITALS: BP 154/70; PULSE 66; RESP 18; TEMP 98.4; O2SAT 94
[2018-05-10] MEDS: SODIUM CHLOR 0.9% 1000 ML INJ 1,000 ML IV SCH (00:31)
[2018-05-10] MEDS: ACETAMINOPHEN/HYDROcodone 325 MG/5 MG TAB PO PRN ×2 (05:43→12:10)
[2018-05-10 07:37] LABS: HEMATOCRIT 35.1 % (39.0-51.0); MEAN CELL VOLUME 98.1 FL (80.0-100.0); MEAN CORPUSCULAR HEMOGLOBIN 33.6 PG (27.0-34.0); MEAN CORPUSCULAR HGB CONC 34.2 % (32.0-36.0); MEAN PLATELET VOLUME 7.3 FL (7.0-11.0); PLATELET COUNT 195 TH/MM3 (150-450); RED BLOOD COUNT 3.58 MIL/MM3 (4.50-5.90); RED CELL DISTRIBUTION WIDTH 13.5 % (11.6-17.2); WHITE BLOOD COUNT 9.9 TH/MM3 (4.0-11.0)
[2018-05-10 08:00] VITALS: BP_SYST 135; BP_SYST 160; BP_DIAS 63; BP_DIAS 69; PULSE 66; PULSE 83; RESP 18; TEMP 98.4; O2SAT 92; O2SAT 94
[2018-05-10] MEDS: PRAVASTATIN SOD 20 MG TAB PO SCH (08:43)
[2018-05-10] MEDS: ATENOLOL 25 MG TAB PO SCH (08:43)
[2018-05-10] MEDS: ENOXAPARIN SODIUM 40 MG/0.4 ML SYRINGE SQ SCH (08:43)
[2018-05-10 11:57] VITALS: BP 113/54; PULSE 75; RESP 20; TEMP 97.6; O2SAT 95
[2018-05-10] MEDS ORDERED: ONDANSETRON HCL 4 MG/2 ML VIAL IV ONE (12:00)
[2018-05-10] MEDS ORDERED: LIDOCAINE HCL 1% PF 5 ML SYRINGE OTHER ONE (12:00)
[2018-05-10] MEDS ORDERED: PHENYLEPH/NS 1000 MCG/10 ML SYR IV ONE (12:00)
[2018-05-10] MEDS ORDERED: NEOSTIGMINE 5 MG/5 ML SYRINGE IV PUSH ONE (12:00)
[2018-05-10] MEDS ORDERED: LACTATED RINGER'S 1000 ML INJ 1,000 ML IV ONE (12:00)
[2018-05-10] MEDS ORDERED: ROCURONIUM INJ 50 MG/5 ML SYRINGE IV PUSH ONE (12:00)
[2018-05-10] MEDS ORDERED: PROPOFOL 200 MG/20 ML AMP IV ONE (12:00)
[2018-05-10] MEDS ORDERED: GLYCOPYRROLATE 1 MG/5 ML SYRINGE IV PUSH ONE (12:00)
== END 2018-05-10 14:52 | disposition home health service (06) | DRG 470 ==
LOC: HSDI 05:21 → N06B 10:58
PROVIDERS: ADMIT Orthopaedic Surgery; ATTEND Orthopaedic Surgery
PROC: 0SRB02Z Replacement of Left Hip Joint with Metal on Polyethylene Synthetic Substitute, Open Approach (ICD-10-PCS; principal; 2018-05-08 06:43)
DX: M16.12 Unilateral primary osteoarthritis, left hip (principal); I10 Essential (primary) hypertension; E78.5 Hyperlipidemia, unspecified; M10.9 Gout, unspecified; R73.9 Hyperglycemia, unspecified; Z79.82 Long term (current) use of aspirin
CPT/HCPCS: 73502; 76000; 85027; 86850; 86900; 86901; 94150; C1776; C9290; J0131; J0690; J1100; J1170; J1580; J1650; J2250; J2270; J2370; J2405; J2710; J3010; J3370; J7030; J7120; L1830